=== PATIENT | female | born 1930 | race Caucasian/White ===

== ENCOUNTER 2018-07-15 15:51 | Inpatient (IN) ==
[2018-07-15 18:28] LABS: Basophils % 0.3 % (0.0-0.8); Hematocrit 44.6 VOL% (35.7-47.0); Hemoglobin 14.9 GM/DL (12.0-16.0); Immature Granulocytes % 0.2 %; Immature Granulocytes Absolute 0.03 #; Lymphocytes # 1.5 10*3/uL (1.4-4.0); Lymphocytes % 11.8 % (21.3-54.2); Mean Corpuscular HGB Conc 33.4 GM/DL (32-36); Mean Corpuscular Hemoglobin 30 PG (27-34); Mean Corpuscular Volume 88.5 FL (87-102); Mean Platelet Volume 9.9 FL (9.6-12.0); Monocytes # 0.4 10*3/uL (0.11-0.8); Neutrophils # 10.9 10*3/uL (1.4-7.4); Neutrophils % 84.7 % (38.7-73.9); Platelet Count 309 T/CUMM (130-400); Red Blood Count 5.04 MC/CUMM (3.8-5.5); Red Cell Distribution Width 14.5 % (9.3-17.3); White Blood Count 12.9 T/CUMM (4-12)
[2018-07-15 18:50] LABS: Calcium 9.4 MG/DL (8.5-10.1); Osmolality,Calculated 279.7 MOS/KG (273-304); Potassium 3.4 MMOL/L (3.5-5.1)
[2018-07-15 19:02] LABS: Troponin I 1.92 NG/ML (0.00-0.045)
[2018-07-15] MEDS ORDERED: DOCUSATE SODIUM 100 MG CAPSULE PO PRN (19:24)
[2018-07-15] MEDS ORDERED: ACETAMINOPHEN 325 MG TABLET PO PRN (19:24)
[2018-07-15] MEDS ORDERED: NITROGLYCERIN SL 0.4 MG TABLET SL PRN (19:34)
[2018-07-15] MEDS ORDERED: ASPIRIN EC 325 MG TABLET PO ONE (19:36)
[2018-07-15] MEDS ORDERED: POTASSIUM CHLORIDE 20 MEQ TABLET PO ONE (19:37)
[2018-07-15] MEDS: ALPRAZolam 0.5 MG TABLET PO SCH (20:20)
[2018-07-15] MEDS: ONDANSETRON 4 MG/2 ML VIAL IV PRN (20:21)
[2018-07-15] MEDS: traZODone 50 MG TABLET PO PRN (20:23)
[2018-07-15] MEDS ORDERED: LEVOFLOXACIN INJ 500 MG in PREMIX 1 EACH IV SCH (21:00)
[2018-07-15 21:16] LABS: CKMB % 8.4 %
[2018-07-15 21:23] LABS: Troponin I 2.77 NG/ML (0.00-0.045)
[2018-07-15] MEDS: BIMATOPROST 0.01% OPH SOLN 2.5 ML BOTTLE BOTH EYES SCH (22:47)
[2018-07-15] MEDS: ENOXAPARIN 80 MG/0.8 ML SYRINGE SUBCUT SCH (22:49)
[2018-07-15] MEDS: FUROSEMIDE 40 MG/4 ML VIAL IV SCH (22:50)
[2018-07-15] MEDS: rOPINIRole 1 MG TABLET PO SCH (22:52)
[2018-07-15] MEDS: PANTOPRAZOLE 40 MG TABLET PO SCH (22:52)
[2018-07-15] MEDS: CARVEDILOL 25 MG TABLET PO SCH (22:53)
[2018-07-16 01:54] LABS: Basophils % 0.2 % (0.0-0.8); Hematocrit 43.5 VOL% (35.7-47.0); Hemoglobin 14.7 GM/DL (12.0-16.0); Immature Granulocytes % 0.2 %; Immature Granulocytes Absolute 0.02 #; Lymphocytes # 1.6 10*3/uL (1.4-4.0); Lymphocytes % 15.9 % (21.3-54.2); Mean Corpuscular HGB Conc 33.8 GM/DL (32-36); Mean Corpuscular Hemoglobin 29 PG (27-34); Mean Platelet Volume 9.9 FL (9.6-12.0); Monocytes # 0.6 10*3/uL (0.11-0.8); Monocytes % 5.8 % (1.7-12.7); Neutrophils # 7.6 10*3/uL (1.4-7.4); Neutrophils % 77.9 % (38.7-73.9); Platelet Count 306 T/CUMM (130-400); Red Cell Distribution Width 14.3 % (9.3-17.3); White Blood Count 9.7 T/CUMM (4-12)
[2018-07-16 02:23] LABS: Calcium 9.4 MG/DL (8.5-10.1); Osmolality,Calculated 279.7 MOS/KG (273-304); Risk Ratio 3.17; VLDL CHOLESTEROL 15.6 MG/DL
[2018-07-16 02:25] LABS: CKMB % 6.5 %
[2018-07-16 02:27] LABS: Troponin I 4.45 NG/ML (0.00-0.045)
[2018-07-16] MEDS ORDERED: CLOPIDOGREL 300 MG TABLET PO ONE (02:30)
[2018-07-16] MEDS ORDERED: diphenhydrAMINE CAP 50 MG CAPSULE PO ONE (02:48)
[2018-07-16] MEDS: ONDANSETRON 4 MG/2 ML VIAL IV PRN ×5 (03:45→16:08)
[2018-07-16 05:04] LABS: Apearance,Urine CLEAR (Clear); Bilirubin,Urine Negative (Negative); Blood, Urine Negative (Negative); Glucose,Urine (UA) 50 mg/dL (Negative); Hyaline Casts,Urine 3 /LPF (0-3); Ketones,Urine 20 mg/dL (Negative); Mucus,Urine Occasional /LPF (Occasional); Nitrite,Urine Negative (Negative); Protein,Urine 30 MG/DL; RBC,Urine 1 /HPF (0-4); Squamous Epithelial Cell,Urine Occasional /HPF (0-10); Urine Color Straw (Yellow); Urine Specific Gravity 1.009 (1.001-1.035); Urine Urobilinogen < 2.0 EU/DL (0.2-1.0); WBC,Urine <1 /HPF (0-6)
[2018-07-16] MEDS ORDERED: MAGNESIUM SULF RIDER 2 GM in PREMIX 1 EACH IV PRN (07:12)
[2018-07-16] MEDS ORDERED: DIAZEPAM 5 MG TABLET PO ONE (07:12)
[2018-07-16] MEDS ORDERED: diphenhydrAMINE CAP 25 MG CAPSULE PO ONE (07:12)
[2018-07-16] MEDS ORDERED: SODIUM CHLORIDE 0.9% 1,000 ML IV SCH (07:30)
[2018-07-16] MEDS: ALPRAZolam 0.5 MG TABLET PO SCH ×2 (08:14→22:23)
[2018-07-16] MEDS: ESCITALOPRAM 10 MG TABLET PO SCH (08:14)
[2018-07-16] MEDS: ENOXAPARIN 80 MG/0.8 ML SYRINGE SUBCUT SCH (08:14)
[2018-07-16] MEDS ORDERED: POTASSIUM CHLORIDE 20 MEQ TABLET PO PRN (08:20)
[2018-07-16] MEDS: FUROSEMIDE 40 MG/4 ML VIAL IV SCH ×2 (08:23→16:45)
[2018-07-16] MEDS ORDERED: LOSARTAN 50 MG TABLET PO SCH (09:00)
[2018-07-16] MEDS ORDERED: NITROGLYCERIN 0.2 MG/HR PATCH TRANSDERM SCH (09:00)
[2018-07-16] MEDS ORDERED: ASPIRIN EC 325 MG TABLET PO SCH (09:00)
[2018-07-16] MEDS: POTASSIUM CHLORIDE 20 MEQ TABLET PO SCH (09:09)
[2018-07-16] MEDS: POTASSIUM CHLORIDE RIDER 10 MEQ in PREMIX 1 EACH IV PRN ×2 (09:10→11:42)
[2018-07-16] MEDS ORDERED: HEPARIN/NACL 0.9% 2 UNITS/ML 0 ML IV ONE (11:49)
[2018-07-16] MEDS ORDERED: LIDOCAINE 1% 20 ML VIAL ONE (11:49)
[2018-07-16] MEDS: CLOPIDOGREL 75 MG TABLET PO SCH (12:33)
[2018-07-16] MEDS: AMIODARONE 200 MG TABLET PO SCH (12:33)
[2018-07-16] MEDS: CARVEDILOL 25 MG TABLET PO SCH ×2 (12:33→22:22)
[2018-07-16] MEDS: PANTOPRAZOLE 40 MG TABLET PO SCH ×2 (12:33→22:22)
[2018-07-16] MEDS: ASPIRIN EC 81 MG TABLET PO SCH (12:33)
[2018-07-16] MEDS ORDERED: HEPARIN/NACL 0.9% 2 UNITS/ML 1,000 ML IV ONE (13:14)
[2018-07-16] MEDS ORDERED: ALPRAZolam 0.5 MG TABLET PO ONE (15:57)
[2018-07-16] MEDS: traZODone 50 MG TABLET PO PRN (21:00)
[2018-07-16] MEDS: rOPINIRole 1 MG TABLET PO SCH (22:22)
[2018-07-16] MEDS: BIMATOPROST 0.01% OPH SOLN 2.5 ML BOTTLE BOTH EYES SCH (22:22)
[2018-07-17] MEDS ORDERED: ALPRAZolam 0.5 MG TABLET PO ONE (00:47)
[2018-07-17 06:09] LABS: Basophils % 0.1 % (0.0-0.8); Hematocrit 41.6 VOL% (35.7-47.0); Hemoglobin 13.9 GM/DL (12.0-16.0); Immature Granulocytes % 0.6 %; Immature Granulocytes Absolute 0.09 #; Lymphocytes # 1.8 10*3/uL (1.4-4.0); Lymphocytes % 11.2 % (21.3-54.2); Mean Corpuscular HGB Conc 33.4 GM/DL (32-36); Mean Corpuscular Hemoglobin 30 PG (27-34); Mean Corpuscular Volume 89.1 FL (87-102); Mean Platelet Volume 10.7 FL (9.6-12.0); Monocytes # 1.6 10*3/uL (0.11-0.8); Monocytes % 9.9 % (1.7-12.7); Neutrophils # 12.5 10*3/uL (1.4-7.4); Neutrophils % 78.2 % (38.7-73.9); Platelet Count 281 T/CUMM (130-400); Red Blood Count 4.67 MC/CUMM (3.8-5.5); Red Cell Distribution Width 14.6 % (9.3-17.3)
[2018-07-17 06:18] LABS: Calcium 9.8 MG/DL (8.5-10.1); Osmolality,Calculated 289.4 MOS/KG (273-304); Potassium 3.4 MMOL/L (3.5-5.1)
[2018-07-17] MEDS: FUROSEMIDE 40 MG/4 ML VIAL IV SCH ×2 (10:06→16:25)
[2018-07-17] MEDS: POTASSIUM CHLORIDE 20 MEQ TABLET PO SCH (10:07)
[2018-07-17] MEDS: ENOXAPARIN 40 MG/0.4 ML SYRINGE SUBCUT SCH (10:07)
[2018-07-17] MEDS: AMIODARONE 200 MG TABLET PO SCH (10:07)
[2018-07-17] MEDS: ASPIRIN EC 81 MG TABLET PO SCH (10:07)
[2018-07-17] MEDS: SPIRONOLACTONE 25 MG TABLET PO SCH (10:07)
[2018-07-17] MEDS: CARVEDILOL 25 MG TABLET PO SCH ×2 (10:07→21:34)
[2018-07-17] MEDS: ESCITALOPRAM 10 MG TABLET PO SCH (10:07)
[2018-07-17] MEDS: ALPRAZolam 0.5 MG TABLET PO SCH ×2 (10:08→21:34)
[2018-07-17] MEDS: CLOPIDOGREL 75 MG TABLET PO SCH (10:08)
[2018-07-17] MEDS: PANTOPRAZOLE 40 MG TABLET PO SCH ×2 (10:08→21:34)
[2018-07-17] MEDS: ONDANSETRON 4 MG/2 ML VIAL IV PRN ×2 (10:24→19:29)
[2018-07-17] MEDS: SUCRALFATE 1 GM/10 ML UDCUP PO SCH ×3 (16:00→21:37)
[2018-07-17] MEDS: BIMATOPROST 0.01% OPH SOLN 2.5 ML BOTTLE BOTH EYES SCH (21:34)
[2018-07-17] MEDS: SACUBITRIL/VALSARTAN 49-51 MG TABLET PO SCH (21:34)
[2018-07-17] MEDS: rOPINIRole 1 MG TABLET PO SCH (21:34)
[2018-07-18 08:03] LABS: Basophils % 0.1 % (0.0-0.8); Hematocrit 38.7 VOL% (35.7-47.0); Hemoglobin 13.2 GM/DL (12.0-16.0); Immature Granulocytes % 0.5 %; Immature Granulocytes Absolute 0.07 #; Lymphocytes # 1.9 10*3/uL (1.4-4.0); Mean Corpuscular HGB Conc 34.1 GM/DL (32-36); Mean Corpuscular Hemoglobin 30 PG (27-34); Mean Corpuscular Volume 88.4 FL (87-102); Mean Platelet Volume 10.5 FL (9.6-12.0); Monocytes # 1.4 10*3/uL (0.11-0.8); Monocytes % 10.3 % (1.7-12.7); Neutrophils # 10.1 10*3/uL (1.4-7.4); Neutrophils % 75.1 % (38.7-73.9); Platelet Count 260 T/CUMM (130-400); Red Blood Count 4.38 MC/CUMM (3.8-5.5); Red Cell Distribution Width 14.5 % (9.3-17.3); White Blood Count 13.5 T/CUMM (4-12)
[2018-07-18 08:30] LABS: Albumin 3.2 G/DL (3.4-5.0); Bilirubin,Direct 0.32 MG/DL (0.0-0.20); Bilirubin,Indirect 0.6 MG/DL (0.0-1.0); Bilirubin,Total 0.9 MG/DL (0.2-1.0); Total Protein 6.4 G/DL (6.4-8.3)
[2018-07-18 08:32] LABS: Calcium 8.7 MG/DL (8.5-10.1); Osmolality,Calculated 289.4 MOS/KG (273-304); Potassium 3.1 MMOL/L (3.5-5.1)
[2018-07-18] MEDS: FUROSEMIDE 40 MG/4 ML VIAL IV SCH (08:52)
[2018-07-18] MEDS: SUCRALFATE 1 GM/10 ML UDCUP PO SCH ×4 (09:30→21:13)
[2018-07-18] MEDS: POTASSIUM CHLORIDE RIDER 10 MEQ in PREMIX 1 EACH IV PRN ×4 (10:44→17:10)
[2018-07-18] MEDS ORDERED: KETOROLAC 15 MG/1 ML VIAL IV ONE (11:04)
[2018-07-18] MEDS: ESCITALOPRAM 10 MG TABLET PO SCH (14:22)
[2018-07-18] MEDS: CLOPIDOGREL 75 MG TABLET PO SCH (14:22)
[2018-07-18] MEDS: CARVEDILOL 25 MG TABLET PO SCH ×2 (14:23→22:16)
[2018-07-18] MEDS: ASPIRIN EC 81 MG TABLET PO SCH (14:23)
[2018-07-18] MEDS: ALPRAZolam 0.5 MG TABLET PO SCH ×2 (14:23→22:16)
[2018-07-18] MEDS: SPIRONOLACTONE 25 MG TABLET PO SCH (14:23)
[2018-07-18] MEDS: PANTOPRAZOLE 40 MG TABLET PO SCH ×2 (14:23→21:13)
[2018-07-18] MEDS: AMIODARONE 200 MG TABLET PO SCH (14:23)
[2018-07-18] MEDS: POTASSIUM CHLORIDE 20 MEQ TABLET PO SCH (14:24)
[2018-07-18] MEDS: ENOXAPARIN 40 MG/0.4 ML SYRINGE SUBCUT SCH (14:24)
[2018-07-18] MEDS: SACUBITRIL/VALSARTAN 49-51 MG TABLET PO SCH ×2 (14:24→21:12)
[2018-07-18] MEDS: ONDANSETRON 4 MG/2 ML VIAL IV PRN (14:39)
[2018-07-18] MEDS: PIPERACILLIN/TAZOBACTAM 3,375 MG in SODIUM CHLORIDE 0.9% 100 ML IV SCH ×2 (15:02→22:15)
[2018-07-18] MEDS: rOPINIRole 1 MG TABLET PO SCH (21:12)
[2018-07-18] MEDS: BIMATOPROST 0.01% OPH SOLN 2.5 ML BOTTLE BOTH EYES SCH (21:13)
[2018-07-19 04:07] LABS: Hematocrit 38.2 VOL% (35.7-47.0); Hemoglobin 12.6 GM/DL (12.0-16.0); Immature Granulocytes % 0.4 %; Immature Granulocytes Absolute 0.05 #; Lymphocytes # 2.2 10*3/uL (1.4-4.0); Lymphocytes % 17.6 % (21.3-54.2); Mean Corpuscular Hemoglobin 30 PG (27-34); Mean Platelet Volume 11.1 FL (9.6-12.0); Monocytes # 1.3 10*3/uL (0.11-0.8); Monocytes % 10.1 % (1.7-12.7); Neutrophils % 71.9 % (38.7-73.9); Platelet Count 236 T/CUMM (130-400); Red Cell Distribution Width 14.5 % (9.3-17.3); White Blood Count 12.5 T/CUMM (4-12)
[2018-07-19 04:30] LABS: Calcium 8.7 MG/DL (8.5-10.1); Osmolality,Calculated 287.4 MOS/KG (273-304); Potassium 3.9 MMOL/L (3.5-5.1)
[2018-07-19] MEDS: PIPERACILLIN/TAZOBACTAM 3,375 MG in SODIUM CHLORIDE 0.9% 100 ML IV SCH ×2 (05:45→13:55)
[2018-07-19] MEDS: ENOXAPARIN 40 MG/0.4 ML SYRINGE SUBCUT SCH (08:38)
[2018-07-19] MEDS: ALPRAZolam 0.5 MG TABLET PO SCH (08:38)
[2018-07-19] MEDS: SUCRALFATE 1 GM/10 ML UDCUP PO SCH ×2 (08:38→12:26)
[2018-07-19] MEDS: ASPIRIN EC 81 MG TABLET PO SCH (08:38)
[2018-07-19] MEDS: POTASSIUM CHLORIDE 20 MEQ TABLET PO SCH (08:38)
[2018-07-19] MEDS: CLOPIDOGREL 75 MG TABLET PO SCH (08:39)
[2018-07-19] MEDS: CARVEDILOL 25 MG TABLET PO SCH (08:39)
[2018-07-19] MEDS: PANTOPRAZOLE 40 MG TABLET PO SCH (08:39)
[2018-07-19] MEDS: AMIODARONE 200 MG TABLET PO SCH (08:39)
[2018-07-19] MEDS: ESCITALOPRAM 10 MG TABLET PO SCH (08:39)
[2018-07-19] MEDS: SPIRONOLACTONE 25 MG TABLET PO SCH (08:39)
[2018-07-19] MEDS: SACUBITRIL/VALSARTAN 49-51 MG TABLET PO SCH (08:39)
[2018-07-19] MEDS ORDERED: FUROSEMIDE 40 MG TABLET PO SCH (09:00)
[2018-07-19] MEDS ORDERED: SODIUM CHLORIDE 0.9% 250 ML IV ONE (11:20)
[2018-07-19 12:25] VITALS: BP 96/44
== END 2018-07-19 16:37 | DRG 280 ==
LOC: N.TELES 17:20 → SUATTDRO 17:20
PROVIDERS: ADMIT Internal Medicine; ATTEND Internal Medicine
PROC: CLCCHCL (ICD-10-PCS; 2018-07-16 13:45)

== ENCOUNTER 2018-10-26 21:52 | Inpatient (IN) ==
[2018-10-27] MEDS: ACETAMINOPHEN 500 MG TABLET PO PRN ×2 (00:50→07:01)
[2018-10-27] MEDS: ONDANSETRON 4 MG/2 ML VIAL IV PRN ×5 (00:50→19:48)
[2018-10-27 01:37] LABS: Basophils # 0.1 10*3/uL (0.0-0.2); Basophils % 0.3 % (0.0-0.8); Eosinophils % 0.2 % (0.00-10.9); Hematocrit 38.3 VOL% (35.7-47.0); Hemoglobin 12.6 GM/DL (12.0-16.0); Immature Granulocytes % 0.6 %; Immature Granulocytes Absolute 0.11 #; Lymphocytes # 1.6 10*3/uL (1.4-4.0); Lymphocytes % 8.9 % (21.3-54.2); Mean Corpuscular HGB Conc 32.9 GM/DL (32-36); Mean Corpuscular Volume 93.2 FL (87-102); Mean Platelet Volume 9.4 FL (9.6-12.0); Monocytes % 7.9 % (1.7-12.7); Neutrophils % 82.1 % (38.7-73.9); Platelet Count 266 T/CUMM (130-400); Red Blood Count 4.11 MC/CUMM (3.8-5.5); Red Cell Distribution Width 13.4 % (9.3-17.3)
[2018-10-27 01:59] LABS: Albumin 3.4 G/DL (3.4-5.0); Bilirubin,Total 0.5 MG/DL (0.2-1.0); Calcium 9.1 MG/DL (8.5-10.1); Osmolality,Calculated 275.5 MOS/KG (273-304); Total Protein 7.3 G/DL (6.4-8.3)
[2018-10-27] MEDS: MORPHINE 4 MG/1 ML VIAL IV PRN ×2 (02:13→07:38)
[2018-10-27] MEDS ORDERED: ACETAMINOPHEN 325 MG TABLET PO PRN (11:36)
[2018-10-27] MEDS ORDERED: ONDANSETRON ODT 4 MG TABLET PO PRN (11:36)
[2018-10-27] MEDS: PROMETHAZINE 25 MG/1 ML VIAL IM PRN ×2 (13:49→18:16)
[2018-10-27] MEDS: VANCOMYCIN 50 MG/ML 60 ML/BOTTLE PO SCH ×2 (13:49→18:16)
[2018-10-27] MEDS: ENOXAPARIN 40 MG/0.4 ML SYRINGE SUBCUT SCH (13:49)
[2018-10-27] MEDS: oxyCODONE/ACETAMINOPHEN 5-325 MG TABLET PO SCH ×2 (15:50→21:59)
[2018-10-27] MEDS ORDERED: CARVEDILOL 6.25 MG TABLET PO SCH (21:00)
[2018-10-27] MEDS: BIMATOPROST 0.01% OPH SOLN 2.5 ML BOTTLE BOTH EYES SCH (21:59)
[2018-10-27] MEDS: CARVEDILOL 12.5 MG TABLET PO SCH (21:59)
[2018-10-27] MEDS: rOPINIRole 0.25 MG TABLET PO SCH (22:00)
[2018-10-27] MEDS: DIVALPROEX ER 250 MG TABLET PO SCH (22:13)
[2018-10-27] MEDS: PHENOL 1.4% THROAT SPRAY 177 ML BOTTLE PO PRN (22:14)
[2018-10-28] MEDS: VANCOMYCIN 50 MG/ML 60 ML/BOTTLE PO SCH ×5 (00:43→23:47)
[2018-10-28] MEDS: MORPHINE 4 MG/1 ML VIAL IV PRN ×2 (01:10→06:26)
[2018-10-28] MEDS: PROMETHAZINE 25 MG/1 ML VIAL IM PRN ×2 (01:13→06:25)
[2018-10-28 05:12] LABS: Basophils # 0.1 10*3/uL (0.0-0.2); Basophils % 0.4 % (0.0-0.8); Eosinophils % 0.1 % (0.00-10.9); Hematocrit 35.8 VOL% (35.7-47.0); Hemoglobin 11.8 GM/DL (12.0-16.0); Immature Granulocytes % 1.1 %; Immature Granulocytes Absolute 0.25 #; Lymphocytes # 2.7 10*3/uL (1.4-4.0); Lymphocytes % 11.7 % (21.3-54.2); Mean Corpuscular Volume 93.2 FL (87-102); Mean Platelet Volume 10.2 FL (9.6-12.0); Neutrophils % 75.7 % (38.7-73.9); Platelet Count 259 T/CUMM (130-400); Red Blood Count 3.84 MC/CUMM (3.8-5.5); Red Cell Distribution Width 13.5 % (9.3-17.3); White Blood Count 23.4 T/CUMM (4-12)
[2018-10-28 05:22] LABS: Osmolality,Calculated 270.8 MOS/KG (273-304)
[2018-10-28 05:40] LABS: Band Neutrophils 4 % (0-10); Lymphocytes 8 % (20-55); Platelet Estimate Normal; Segmented Neutrophils 78 % (50-85); Total Cells Counted 100
[2018-10-28 08:51] LABS: Apearance,Urine CLEAR (Clear); Bilirubin,Urine Negative (Negative); Blood, Urine Negative (Negative); Glucose,Urine (UA) Negative (Negative); Hyaline Casts,Urine 1 /LPF (0-3); Ketones,Urine 20 mg/dL (Negative); Mucus,Urine Occasional /LPF (Occasional); Nitrite,Urine Negative (Negative); Protein,Urine Negative; RBC,Urine 1 /HPF (0-4); Urine Color Yellow (Yellow); Urine Specific Gravity 1.011 (1.001-1.035); Urine Urobilinogen < 2.0 EU/DL (0.2-1.0); WBC,Urine 8 /HPF (0-6)
[2018-10-28] MEDS: ESCITALOPRAM 10 MG TABLET PO SCH (09:41)
[2018-10-28] MEDS: oxyCODONE/ACETAMINOPHEN 5-325 MG TABLET PO SCH ×3 (09:41→21:30)
[2018-10-28] MEDS: CARVEDILOL 12.5 MG TABLET PO SCH ×2 (09:42→21:32)
[2018-10-28] MEDS: QUEtiapine 25 MG TABLET PO SCH (09:42)
[2018-10-28] MEDS: SPIRONOLACTONE 25 MG TABLET PO SCH (09:42)
[2018-10-28] MEDS: PANTOPRAZOLE 40 MG TABLET PO SCH (09:42)
[2018-10-28] MEDS: AMIODARONE 200 MG TABLET PO SCH (09:42)
[2018-10-28] MEDS: ONDANSETRON 4 MG/2 ML VIAL IV PRN ×2 (09:43→22:16)
[2018-10-28] MEDS: ENOXAPARIN 40 MG/0.4 ML SYRINGE SUBCUT SCH (13:30)
[2018-10-28] MEDS: rOPINIRole 0.25 MG TABLET PO SCH (21:30)
[2018-10-28] MEDS: BIMATOPROST 0.01% OPH SOLN 2.5 ML BOTTLE BOTH EYES SCH (21:31)
[2018-10-28] MEDS: DIVALPROEX ER 250 MG TABLET PO SCH (21:31)
[2018-10-29] MEDS: ALPRAZolam 0.5 MG TABLET PO PRN (01:35)
[2018-10-29] MEDS: PHENOL 1.4% THROAT SPRAY 177 ML BOTTLE PO PRN (01:35)
[2018-10-29] MEDS: VANCOMYCIN 50 MG/ML 60 ML/BOTTLE PO SCH ×4 (06:24→23:26)
[2018-10-29 07:22] LABS: Basophils # 0.1 10*3/uL (0.0-0.2); Basophils % 0.4 % (0.0-0.8); Eosinophils # 0.4 10*3/uL (0.0-0.87); Eosinophils % 2.1 % (0.00-10.9); Hemoglobin 11.4 GM/DL (12.0-16.0); Immature Granulocytes % 0.7 %; Immature Granulocytes Absolute 0.13 #; Lymphocytes # 1.9 10*3/uL (1.4-4.0); Lymphocytes % 10.5 % (21.3-54.2); Mean Corpuscular HGB Conc 33.5 GM/DL (32-36); Mean Corpuscular Volume 91.6 FL (87-102); Mean Platelet Volume 9.6 FL (9.6-12.0); Monocytes % 8.7 % (1.7-12.7); Neutrophils % 77.6 % (38.7-73.9); Platelet Count 257 T/CUMM (130-400); Red Blood Count 3.71 MC/CUMM (3.8-5.5); Red Cell Distribution Width 13.4 % (9.3-17.3); White Blood Count 18.2 T/CUMM (4-12)
[2018-10-29] MEDS: PROMETHAZINE 25 MG/1 ML VIAL IM PRN ×2 (07:22→22:07)
[2018-10-29] MEDS: PANTOPRAZOLE 40 MG TABLET PO SCH (09:18)
[2018-10-29] MEDS: SPIRONOLACTONE 25 MG TABLET PO SCH (09:18)
[2018-10-29] MEDS: CARVEDILOL 12.5 MG TABLET PO SCH ×2 (09:19→21:48)
[2018-10-29] MEDS: ESCITALOPRAM 10 MG TABLET PO SCH (09:19)
[2018-10-29] MEDS: AMIODARONE 200 MG TABLET PO SCH (09:19)
[2018-10-29] MEDS: QUEtiapine 25 MG TABLET PO SCH (09:20)
[2018-10-29] MEDS: oxyCODONE/ACETAMINOPHEN 5-325 MG TABLET PO SCH ×3 (09:49→21:47)
[2018-10-29 10:36] LABS: Calcium 8.7 MG/DL (8.5-10.1); Osmolality,Calculated 269.2 MOS/KG (273-304)
[2018-10-29] MEDS: ENOXAPARIN 40 MG/0.4 ML SYRINGE SUBCUT SCH (13:04)
[2018-10-29] MEDS: rOPINIRole 0.25 MG TABLET PO SCH (21:48)
[2018-10-29] MEDS: DIVALPROEX ER 250 MG TABLET PO SCH (21:49)
[2018-10-29] MEDS: BIMATOPROST 0.01% OPH SOLN 2.5 ML BOTTLE BOTH EYES SCH (22:06)
[2018-10-30 04:42] LABS: Basophils % 0.2 % (0.0-0.8); Eosinophils # 0.4 10*3/uL (0.0-0.87); Eosinophils % 3.2 % (0.00-10.9); Hematocrit 32.2 VOL% (35.7-47.0); Hemoglobin 10.8 GM/DL (12.0-16.0); Immature Granulocytes % 0.4 %; Immature Granulocytes Absolute 0.05 #; Lymphocytes # 2.2 10*3/uL (1.4-4.0); Lymphocytes % 18.3 % (21.3-54.2); Mean Corpuscular HGB Conc 33.5 GM/DL (32-36); Mean Corpuscular Volume 91.5 FL (87-102); Mean Platelet Volume 10.4 FL (9.6-12.0); Monocytes % 10.2 % (1.7-12.7); Neutrophils % 67.7 % (38.7-73.9); Platelet Count 258 T/CUMM (130-400); Red Blood Count 3.52 MC/CUMM (3.8-5.5); Red Cell Distribution Width 13.3 % (9.3-17.3); White Blood Count 12.2 T/CUMM (4-12)
[2018-10-30 04:59] LABS: Calcium 8.5 MG/DL (8.5-10.1); Osmolality,Calculated 278.7 MOS/KG (273-304)
[2018-10-30] MEDS: VANCOMYCIN 50 MG/ML 60 ML/BOTTLE PO SCH ×3 (06:10→17:18)
[2018-10-30] MEDS: oxyCODONE/ACETAMINOPHEN 5-325 MG TABLET PO SCH ×3 (08:54→21:41)
[2018-10-30] MEDS: ESCITALOPRAM 10 MG TABLET PO SCH (08:55)
[2018-10-30] MEDS: SPIRONOLACTONE 25 MG TABLET PO SCH (08:55)
[2018-10-30] MEDS: QUEtiapine 25 MG TABLET PO SCH (08:55)
[2018-10-30] MEDS: CARVEDILOL 12.5 MG TABLET PO SCH ×2 (08:55→21:40)
[2018-10-30] MEDS: AMIODARONE 200 MG TABLET PO SCH (08:55)
[2018-10-30] MEDS: PANTOPRAZOLE 40 MG TABLET PO SCH (08:56)
[2018-10-30] MEDS: PROMETHAZINE 25 MG/1 ML VIAL IM PRN (10:20)
[2018-10-30] MEDS: ENOXAPARIN 40 MG/0.4 ML SYRINGE SUBCUT SCH (12:41)
[2018-10-30] MEDS: ONDANSETRON 4 MG/2 ML VIAL IV PRN (12:50)
[2018-10-30] MEDS: DIVALPROEX ER 250 MG TABLET PO SCH (21:41)
[2018-10-30] MEDS: BIMATOPROST 0.01% OPH SOLN 2.5 ML BOTTLE BOTH EYES SCH (21:41)
[2018-10-30] MEDS: LACTOBACILLUS RHAMNOSUS GG CAPSULE PO SCH (21:50)
[2018-10-30] MEDS: rOPINIRole 0.25 MG TABLET PO SCH (21:51)
[2018-10-31] MEDS: VANCOMYCIN 50 MG/ML 60 ML/BOTTLE PO SCH ×3 (00:12→13:15)
[2018-10-31] MEDS: CARVEDILOL 12.5 MG TABLET PO SCH ×2 (01:10→08:43)
[2018-10-31 04:30] LABS: Basophils % 0.5 % (0.0-0.8); Eosinophils # 0.5 10*3/uL (0.0-0.87); Eosinophils % 5.9 % (0.00-10.9); Hematocrit 32.3 VOL% (35.7-47.0); Hemoglobin 10.4 GM/DL (12.0-16.0); Immature Granulocytes % 0.5 %; Immature Granulocytes Absolute 0.04 #; Lymphocytes # 2.1 10*3/uL (1.4-4.0); Lymphocytes % 26.9 % (21.3-54.2); Mean Corpuscular HGB Conc 32.2 GM/DL (32-36); Mean Corpuscular Volume 93.9 FL (87-102); Mean Platelet Volume 9.6 FL (9.6-12.0); Monocytes % 15.4 % (1.7-12.7); Neutrophils % 50.8 % (38.7-73.9); Platelet Count 246 T/CUMM (130-400); Red Blood Count 3.44 MC/CUMM (3.8-5.5); Red Cell Distribution Width 13.4 % (9.3-17.3); White Blood Count 7.6 T/CUMM (4-12)
[2018-10-31 04:46] LABS: Calcium 8.9 MG/DL (8.5-10.1); Osmolality,Calculated 283.3 MOS/KG (273-304)
[2018-10-31] MEDS: ACETAMINOPHEN 500 MG TABLET PO PRN (05:42)
[2018-10-31] MEDS: ALPRAZolam 0.5 MG TABLET PO PRN (05:42)
[2018-10-31] MEDS: ESCITALOPRAM 10 MG TABLET PO SCH (08:42)
[2018-10-31] MEDS: PROMETHAZINE 25 MG/1 ML VIAL IM PRN (08:42)
[2018-10-31] MEDS: SPIRONOLACTONE 25 MG TABLET PO SCH (08:43)
[2018-10-31] MEDS: oxyCODONE/ACETAMINOPHEN 5-325 MG TABLET PO SCH ×2 (08:43→14:14)
[2018-10-31] MEDS: PANTOPRAZOLE 40 MG TABLET PO SCH (08:43)
[2018-10-31] MEDS: QUEtiapine 25 MG TABLET PO SCH (08:43)
[2018-10-31] MEDS: LACTOBACILLUS RHAMNOSUS GG CAPSULE PO SCH (08:43)
[2018-10-31] MEDS: AMIODARONE 200 MG TABLET PO SCH (08:44)
[2018-10-31 12:33] VITALS: BP 126/81
[2018-10-31] MEDS: ENOXAPARIN 40 MG/0.4 ML SYRINGE SUBCUT SCH (13:15)
[2018-11-01] MEDS ORDERED: FUROSEMIDE 40 MG TABLET PO SCH (09:00)
[2018-11-01] MEDS ORDERED: ASPIRIN EC 81 MG TABLET PO SCH (09:00)
== END 2018-10-31 14:21 | disposition home health service (06) | DRG 372 ==
LOC: N.TELES → N.TELEN 10-27 08:56
PROVIDERS: ADMIT Internal Medicine Cardiovascular Disease; ATTEND Internal Medicine Cardiovascular Disease

== ENCOUNTER 2019-02-16 23:35 | Inpatient (IN) ==
[2019-02-17] MEDS ORDERED: ACETAMINOPHEN 325 MG TABLET PO PRN (02:30)
[2019-02-17] MEDS ORDERED: ONDANSETRON 4 MG/2 ML VIAL IV PRN (02:30)
[2019-02-17] MEDS ORDERED: SODIUM CHLORIDE 0.9% 1,000 ML IV SCH (02:30)
[2019-02-17] MEDS ORDERED: LACTULOSE 20 GM/30 ML UDCUP PO PRN (02:30)
[2019-02-17] MEDS ORDERED: DOCUSATE SODIUM 100 MG CAPSULE PO PRN (02:37)
[2019-02-17] MEDS: CLORAZEPATE 3.75 MG TABLET PO PRN ×2 (04:54→17:38)
[2019-02-17] MEDS: oxyCODONE/ACETAMINOPHEN 5-325 MG TABLET PO PRN (06:57)
[2019-02-17 07:04] LABS: Basophils # 0.1 10*3/uL (0.0-0.2); Basophils % 0.4 % (0.0-0.8); Eosinophils % 0.2 % (0.00-10.9); Hematocrit 36.1 VOL% (35.7-47.0); Hemoglobin 12.3 GM/DL (12.0-16.0); Immature Granulocytes % 0.5 %; Immature Granulocytes Absolute 0.08 #; Lymphocytes # 1.1 10*3/uL (1.4-4.0); Mean Corpuscular HGB Conc 34.1 GM/DL (32-36); Mean Corpuscular Volume 88.7 FL (87-102); Mean Platelet Volume 10.3 FL (9.6-12.0); Monocytes % 8.1 % (1.7-12.7); Neutrophils % 83.8 % (38.7-73.9); Platelet Count 254 T/CUMM (130-400); Red Blood Count 4.07 MC/CUMM (3.8-5.5); Red Cell Distribution Width 14.4 % (9.3-17.3); White Blood Count 15.6 T/CUMM (4-12)
[2019-02-17 07:30] LABS: Calcium 9.4 MG/DL (8.5-10.1); Osmolality,Calculated 278.4 MOS/KG (273-304)
[2019-02-17] MEDS: QUEtiapine 25 MG TABLET PO SCH ×2 (09:12→20:19)
[2019-02-17] MEDS: MULTIVITAMIN (CENTRUM) TABLET PO SCH (09:13)
[2019-02-17] MEDS: AMIODARONE 200 MG TABLET PO SCH (09:13)
[2019-02-17] MEDS: PANTOPRAZOLE 40 MG TABLET PO SCH (09:13)
[2019-02-17] MEDS: FUROSEMIDE 40 MG TABLET PO SCH (09:13)
[2019-02-17] MEDS: ESCITALOPRAM 10 MG TABLET PO SCH (09:13)
[2019-02-17] MEDS: CARVEDILOL 12.5 MG TABLET PO SCH ×2 (09:13→16:40)
[2019-02-17] MEDS: SPIRONOLACTONE 25 MG TABLET PO SCH (09:14)
[2019-02-17] MEDS: ENOXAPARIN 30 MG/0.3 ML SYRINGE SUBCUT SCH (09:14)
[2019-02-17] MEDS: ASPIRIN EC 81 MG TABLET PO SCH (09:14)
[2019-02-17] MEDS: PROMETHAZINE 25 MG/1 ML VIAL IM PRN ×2 (10:25→20:17)
[2019-02-17 16:45] LABS: Apearance,Urine CLEAR (Clear); Bilirubin,Urine Negative (Negative); Blood, Urine Negative (Negative); Glucose,Urine (UA) Negative (Negative); Hyaline Casts,Urine 1 /LPF (0-3); Ketones,Urine Negative (Negative); Nitrite,Urine Negative (Negative); Protein,Urine Negative; Squamous Epithelial Cell,Urine Occasional /HPF (0-10); Urine Color Straw (Yellow); Urine Specific Gravity 1.004 (1.001-1.035); Urine Urobilinogen < 2.0 EU/DL (0.2-1.0)
[2019-02-17] MEDS: ROPINIROLE 0.25 MG PO SCH (20:16)
[2019-02-18] MEDS: PROMETHAZINE 25 MG/1 ML VIAL IM PRN ×2 (01:28→22:29)
[2019-02-18] MEDS: CLORAZEPATE 3.75 MG TABLET PO PRN ×3 (02:18→20:20)
[2019-02-18] MEDS: oxyCODONE/ACETAMINOPHEN 5-325 MG TABLET PO PRN ×3 (05:15→22:29)
[2019-02-18 07:21] LABS: Basophils # 0.1 10*3/uL (0.0-0.2); Basophils % 0.8 % (0.0-0.8); Eosinophils # 0.5 10*3/uL (0.0-0.87); Eosinophils % 4.5 % (0.00-10.9); Hematocrit 33.7 VOL% (35.7-47.0); Hemoglobin 11.4 GM/DL (12.0-16.0); Immature Granulocytes % 0.4 %; Immature Granulocytes Absolute 0.04 #; Lymphocytes # 2.3 10*3/uL (1.4-4.0); Mean Corpuscular HGB Conc 33.8 GM/DL (32-36); Mean Corpuscular Volume 90.6 FL (87-102); Mean Platelet Volume 10.1 FL (9.6-12.0); Monocytes % 12.9 % (1.7-12.7); Neutrophils % 59.4 % (38.7-73.9); Platelet Count 225 T/CUMM (130-400); Red Blood Count 3.72 MC/CUMM (3.8-5.5); Red Cell Distribution Width 14.8 % (9.3-17.3); White Blood Count 10.4 T/CUMM (4-12)
[2019-02-18 07:42] LABS: Albumin 3.2 G/DL (3.4-5.0); Bilirubin,Total 0.5 MG/DL (0.2-1.0); Calcium 8.8 MG/DL (8.5-10.1); Osmolality,Calculated 283.8 MOS/KG (273-304); Total Protein 6.8 G/DL (6.4-8.3)
[2019-02-18] MEDS: CARVEDILOL 12.5 MG TABLET PO SCH ×3 (09:29→18:00)
[2019-02-18] MEDS: PANTOPRAZOLE 40 MG TABLET PO SCH (09:29)
[2019-02-18] MEDS: FUROSEMIDE 40 MG TABLET PO SCH (09:29)
[2019-02-18] MEDS: SPIRONOLACTONE 25 MG TABLET PO SCH (09:29)
[2019-02-18] MEDS: QUEtiapine 25 MG TABLET PO SCH ×2 (09:29→20:20)
[2019-02-18] MEDS: MULTIVITAMIN (CENTRUM) TABLET PO SCH (09:29)
[2019-02-18] MEDS: ASPIRIN EC 81 MG TABLET PO SCH (09:29)
[2019-02-18] MEDS: ESCITALOPRAM 10 MG TABLET PO SCH (09:30)
[2019-02-18] MEDS: AMIODARONE 200 MG TABLET PO SCH (09:30)
[2019-02-18] MEDS: ENOXAPARIN 30 MG/0.3 ML SYRINGE SUBCUT SCH (09:30)
[2019-02-18] MEDS: SODIUM CHLORIDE 0.45% 1,000 ML IV SCH (10:36)
[2019-02-18] MEDS: ROPINIROLE 0.25 MG PO SCH (20:20)
[2019-02-18] MEDS: ZALEPLON 5 MG CAPSULE PO PRN (20:20)
[2019-02-19] MEDS: ZALEPLON 5 MG CAPSULE PO PRN (00:53)
[2019-02-19 04:34] LABS: Basophils # 0.1 10*3/uL (0.0-0.2); Basophils % 0.9 % (0.0-0.8); Eosinophils # 0.4 10*3/uL (0.0-0.87); Eosinophils % 4.6 % (0.00-10.9); Hematocrit 33.9 VOL% (35.7-47.0); Hemoglobin 11.1 GM/DL (12.0-16.0); Immature Granulocytes % 0.4 %; Immature Granulocytes Absolute 0.04 #; Lymphocytes # 2.7 10*3/uL (1.4-4.0); Lymphocytes % 29.9 % (21.3-54.2); Mean Corpuscular HGB Conc 32.7 GM/DL (32-36); Mean Corpuscular Volume 92.4 FL (87-102); Mean Platelet Volume 10.2 FL (9.6-12.0); Neutrophils % 50.2 % (38.7-73.9); Platelet Count 239 T/CUMM (130-400); Red Blood Count 3.67 MC/CUMM (3.8-5.5)
[2019-02-19] MEDS ORDERED: oxyCODONE/ACETAMINOPHEN 5-325 MG TABLET PO ONE (04:39)
[2019-02-19 04:55] LABS: Albumin 2.9 G/DL (3.4-5.0); Bilirubin,Total 0.4 MG/DL (0.2-1.0); Calcium 8.8 MG/DL (8.5-10.1); Osmolality,Calculated 283.7 MOS/KG (273-304); Total Protein 6.4 G/DL (6.4-8.3)
[2019-02-19] MEDS: SODIUM CHLORIDE 0.45% 1,000 ML IV SCH (05:58)
[2019-02-19 07:43] VITALS: BP 128/71
[2019-02-19] MEDS: CARVEDILOL 12.5 MG TABLET PO SCH (08:37)
[2019-02-19] MEDS: PANTOPRAZOLE 40 MG TABLET PO SCH (08:37)
[2019-02-19] MEDS: ASPIRIN EC 81 MG TABLET PO SCH (08:37)
[2019-02-19] MEDS: QUEtiapine 25 MG TABLET PO SCH (08:37)
[2019-02-19] MEDS: AMIODARONE 200 MG TABLET PO SCH (08:37)
[2019-02-19] MEDS: MULTIVITAMIN (CENTRUM) TABLET PO SCH (08:37)
[2019-02-19] MEDS: FUROSEMIDE 40 MG TABLET PO SCH (08:37)
[2019-02-19] MEDS: ESCITALOPRAM 10 MG TABLET PO SCH (08:37)
[2019-02-19] MEDS: SPIRONOLACTONE 25 MG TABLET PO SCH (08:37)
[2019-02-19] MEDS: ENOXAPARIN 30 MG/0.3 ML SYRINGE SUBCUT SCH (08:38)
[2019-02-19] MEDS: oxyCODONE/ACETAMINOPHEN 5-325 MG TABLET PO PRN (08:40)
== END 2019-02-19 12:03 | disposition home health service (06) | DRG 683 ==
LOC: N.5E → SUATTDRO 02-17 00:47 → OBSVTOIN 02-17 00:47
PROVIDERS: ADMIT Internal Medicine; ATTEND Internal Medicine

== ENCOUNTER 2020-04-01 02:59 | Observation (INO) ==
[2020-04-01] MEDS ORDERED: SODIUM CHLORIDE 0.9% 500 ML IV STA (03:48)
[2020-04-01] MEDS ORDERED: ONDANSETRON 4 MG/2 ML VIAL IV STA (03:48)
[2020-04-01] MEDS ORDERED: ASPIRIN 325 MG TABLET PO STA (03:48)
[2020-04-01] MEDS ORDERED: ALUM/MAG/SIMETH/LIDO VISC 1:1 30 ML BOTTLE PO STA (03:48)
[2020-04-01] MEDS ORDERED: MORPHINE 4 MG/1 ML VIAL IV STA (03:48)
[2020-04-01 04:06] LABS: Basophils # 0.1 10*3/uL (0.0-0.2); Basophils % 0.6 % (0.0-0.8); Eosinophils # 0.2 10*3/uL (0.0-0.87); Eosinophils % 1.4 % (0.00-10.9); Hematocrit 37.5 VOL% (35.7-47.0); Hemoglobin 13.3 GM/DL (12.0-16.0); Immature Granulocytes % 0.4 %; Immature Granulocytes Absolute 0.04 #; Lymphocytes # 1.6 10*3/uL (1.4-4.0); Lymphocytes % 14.9 % (21.3-54.2); Mean Corpuscular HGB Conc 35.5 GM/DL (32-36); Mean Corpuscular Volume 91.7 FL (87-102); Mean Platelet Volume 9.7 FL (9.6-12.0); Monocytes % 6.5 % (1.7-12.7); Neutrophils % 76.2 % (38.7-73.9); Platelet Count 235 T/CUMM (130-400); Red Blood Count 4.09 MC/CUMM (3.8-5.5); Red Cell Distribution Width 13.7 % (9.3-17.3); White Blood Count 10.9 T/CUMM (4-12)
[2020-04-01 04:16] LABS: PT Patient Result 11.1 SECS (9.8-11.9)
[2020-04-01 04:37] LABS: Albumin 3.5 G/DL (3.4-5.0); Bilirubin,Total 0.4 MG/DL (0.2-1.0); Calcium 9.6 MG/DL (8.5-10.1); Osmolality,Calculated 277.7 MOS/KG (273-304); Total Protein 7.1 G/DL (6.4-8.3)
[2020-04-01] MEDS ORDERED: POTASSIUM CHLORIDE 20 MEQ TABLET PO STA (04:48)
[2020-04-01] MEDS ORDERED: MAGNESIUM SULF RIDER 4 GM in PREMIX 1 EACH IV PRN (05:55)
[2020-04-01] MEDS ORDERED: DOCUSATE SODIUM 100 MG CAPSULE PO PRN (05:55)
[2020-04-01] MEDS ORDERED: MAGNESIUM SULF RIDER 2 GM in PREMIX 1 EACH IV PRN (05:55)
[2020-04-01] MEDS ORDERED: ACETAMINOPHEN 325 MG TABLET PO PRN (05:57)
[2020-04-01] MEDS ORDERED: PROMETHAZINE 25 MG/1 ML VIAL IM PRN (05:57)
[2020-04-01] MEDS: AMPICILLIN/SULBACTAM 3,000 MG in SODIUM CHLORIDE 0.9% 100 ML IV SCH ×3 (08:15→22:17)
[2020-04-01] MEDS: carvediloL 12.5 MG TABLET PO SCH ×2 (08:15→18:20)
[2020-04-01] MEDS: oxyCODONE/ACETAMINOPHEN 5-325 MG TABLET PO PRN ×2 (08:35→18:18)
[2020-04-01 08:55] LABS: Bilirubin,Urine Negative (Negative); Blood, Urine Negative (Negative); Glucose,Urine (UA) Negative (Negative); Hyaline Casts,Urine 1 /LPF (0-3); Ketones,Urine Negative (Negative); Mucus,Urine Occasional /LPF (Occasional); Nitrite,Urine Negative (Negative); Protein,Urine Negative; RBC,Urine 2 /HPF (0-4); Squamous Epithelial Cell,Urine Occasional /HPF (0-10); Urine Appearance CLEAR (Clear); Urine Color Yellow (Yellow); Urine Specific Gravity 1.013 (1.001-1.035); Urine Urobilinogen < 2.0 EU/DL (0.2-1.0); WBC,Urine 5 /HPF (0-6)
[2020-04-01] MEDS ORDERED: POTASSIUM CHLORIDE 20 MEQ TABLET PO SCH (09:00)
[2020-04-01] MEDS ORDERED: FUROSEMIDE 40 MG TABLET PO SCH (09:00)
[2020-04-01] MEDS: ENOXAPARIN 40 MG/0.4 ML SYRINGE SUBCUT SCH (09:00)
[2020-04-01] MEDS: MULTIVITAMIN (OCUVITE) TABLET PO SCH (09:15)
[2020-04-01] MEDS: AMIODARONE 200 MG TABLET PO SCH (09:15)
[2020-04-01] MEDS: ESCITALOPRAM 10 MG TABLET PO SCH (09:15)
[2020-04-01] MEDS: QUEtiapine 25 MG TABLET PO SCH ×2 (09:15→21:41)
[2020-04-01] MEDS: MULTIVITAMIN (CENTRUM) TABLET PO SCH (09:20)
[2020-04-01] MEDS: ASPIRIN EC 81 MG TABLET PO SCH (09:20)
[2020-04-01] MEDS: LUBIPROSTONE 8 MCG CAPSULE PO SCH ×2 (09:25→21:41)
[2020-04-01] MEDS: amLODIPine 10 MG TABLET PO SCH (09:30)
[2020-04-01] MEDS: PANTOPRAZOLE 40 MG TABLET PO SCH (09:30)
[2020-04-01] MEDS: SPIRONOLACTONE 25 MG TABLET PO SCH (09:30)
[2020-04-01] MEDS: SODIUM CHLORIDE 0.9% 1,000 ML IV SCH ×2 (16:46→18:58)
[2020-04-01] MEDS: rOPINIRole 0.25 MG TABLET PO SCH (21:41)
[2020-04-01] MEDS: ONDANSETRON 4 MG/2 ML VIAL IV PRN (22:10)
[2020-04-01] MEDS: MORPHINE 4 MG/1 ML VIAL IV PRN (22:13)
[2020-04-02] MEDS: MORPHINE 4 MG/1 ML VIAL IV PRN ×3 (03:18→14:14)
[2020-04-02] MEDS: AMPICILLIN/SULBACTAM 3,000 MG in SODIUM CHLORIDE 0.9% 100 ML IV SCH ×4 (03:26→20:50)
[2020-04-02] MEDS: ONDANSETRON 4 MG/2 ML VIAL IV PRN ×2 (03:29→22:26)
[2020-04-02] MEDS: MULTIVITAMIN (OCUVITE) TABLET PO SCH ×3 (03:58→20:51)
[2020-04-02] MEDS: SODIUM CHLORIDE 0.9% 1,000 ML IV SCH ×2 (05:15→18:35)
[2020-04-02 05:55] LABS: Basophils # 0.1 10*3/uL (0.0-0.2); Basophils % 0.4 % (0.0-0.8); Eosinophils # 0.2 10*3/uL (0.0-0.87); Eosinophils % 1.4 % (0.00-10.9); Hematocrit 30.4 VOL% (35.7-47.0); Hemoglobin 10.2 GM/DL (12.0-16.0); Immature Granulocytes % 0.5 %; Immature Granulocytes Absolute 0.06 #; Lymphocytes # 2.1 10*3/uL (1.4-4.0); Lymphocytes % 17.1 % (21.3-54.2); Mean Corpuscular HGB Conc 33.6 GM/DL (32-36); Mean Corpuscular Volume 94.7 FL (87-102); Neutrophils % 71.6 % (38.7-73.9); Platelet Count 179 T/CUMM (130-400); Red Blood Count 3.21 MC/CUMM (3.8-5.5); Red Cell Distribution Width 14.3 % (9.3-17.3); White Blood Count 12.2 T/CUMM (4-12)
[2020-04-02 06:29] LABS: Calcium 8.5 MG/DL (8.5-10.1)
[2020-04-02] MEDS: POTASSIUM CHLORIDE 20 MEQ TABLET PO PRN ×4 (07:24→16:56)
[2020-04-02] MEDS: ENOXAPARIN 40 MG/0.4 ML SYRINGE SUBCUT SCH (07:25)
[2020-04-02] MEDS: amLODIPine 10 MG TABLET PO SCH (09:30)
[2020-04-02] MEDS: ESCITALOPRAM 10 MG TABLET PO SCH (09:30)
[2020-04-02] MEDS: SPIRONOLACTONE 25 MG TABLET PO SCH (09:31)
[2020-04-02] MEDS: MULTIVITAMIN (CENTRUM) TABLET PO SCH (09:31)
[2020-04-02] MEDS: LUBIPROSTONE 8 MCG CAPSULE PO SCH ×2 (09:31→20:54)
[2020-04-02] MEDS: carvediloL 12.5 MG TABLET PO SCH ×2 (09:31→16:55)
[2020-04-02] MEDS: PANTOPRAZOLE 40 MG TABLET PO SCH (09:31)
[2020-04-02] MEDS: AMIODARONE 200 MG TABLET PO SCH (09:31)
[2020-04-02] MEDS: ASPIRIN EC 81 MG TABLET PO SCH (09:31)
[2020-04-02] MEDS: oxyCODONE/ACETAMINOPHEN 5-325 MG TABLET PO PRN ×2 (09:31→20:50)
[2020-04-02] MEDS: QUEtiapine 25 MG TABLET PO SCH ×2 (10:33→20:51)
[2020-04-02] MEDS: rOPINIRole 0.25 MG TABLET PO SCH (20:51)
[2020-04-03] MEDS: POTASSIUM CHLORIDE 20 MEQ TABLET PO PRN ×2 (00:32→03:59)
[2020-04-03] MEDS: SODIUM CHLORIDE 0.9% 1,000 ML IV SCH ×2 (03:57→09:36)
[2020-04-03] MEDS: AMPICILLIN/SULBACTAM 3,000 MG in SODIUM CHLORIDE 0.9% 100 ML IV SCH ×2 (03:58→09:36)
[2020-04-03 06:12] LABS: Calcium 8.3 MG/DL (8.5-10.1); Osmolality,Calculated 282.8 MOS/KG (273-304)
[2020-04-03 06:13] LABS: Basophils # 0.1 10*3/uL (0.0-0.2); Basophils % 0.6 % (0.0-0.8); Eosinophils # 0.4 10*3/uL (0.0-0.87); Eosinophils % 4.3 % (0.00-10.9); Hemoglobin 10.3 GM/DL (12.0-16.0); Immature Granulocytes % 0.3 %; Immature Granulocytes Absolute 0.03 #; Lymphocytes % 19.8 % (21.3-54.2); Mean Corpuscular HGB Conc 33.2 GM/DL (32-36); Mean Platelet Volume 10.2 FL (9.6-12.0); Monocytes % 8.6 % (1.7-12.7); Neutrophils % 66.4 % (38.7-73.9); Platelet Count 185 T/CUMM (130-400); Red Blood Count 3.23 MC/CUMM (3.8-5.5); Red Cell Distribution Width 14.6 % (9.3-17.3); White Blood Count 10.2 T/CUMM (4-12)
[2020-04-03] MEDS: ENOXAPARIN 40 MG/0.4 ML SYRINGE SUBCUT SCH (06:23)
[2020-04-03] MEDS: oxyCODONE/ACETAMINOPHEN 5-325 MG TABLET PO PRN (06:40)
[2020-04-03] MEDS: ONDANSETRON 4 MG/2 ML VIAL IV PRN (06:40)
[2020-04-03 07:48] VITALS: BP 117/44
[2020-04-03] MEDS ORDERED: POLYETHYLENE GLYCOL POWDER 17 GM PACK PO SCH (09:00)
[2020-04-03] MEDS: carvediloL 12.5 MG TABLET PO SCH (09:10)
[2020-04-03] MEDS: AMIODARONE 200 MG TABLET PO SCH (09:10)
[2020-04-03] MEDS: SPIRONOLACTONE 25 MG TABLET PO SCH (09:10)
[2020-04-03] MEDS: LUBIPROSTONE 8 MCG CAPSULE PO SCH (09:10)
[2020-04-03] MEDS: ESCITALOPRAM 10 MG TABLET PO SCH (09:10)
[2020-04-03] MEDS: MULTIVITAMIN (CENTRUM) TABLET PO SCH (09:10)
[2020-04-03] MEDS: QUEtiapine 25 MG TABLET PO SCH (09:10)
[2020-04-03] MEDS: ASPIRIN EC 81 MG TABLET PO SCH (09:10)
[2020-04-03] MEDS: MULTIVITAMIN (OCUVITE) TABLET PO SCH (09:10)
[2020-04-03] MEDS: amLODIPine 10 MG TABLET PO SCH (09:10)
[2020-04-03] MEDS: PANTOPRAZOLE 40 MG TABLET PO SCH (09:10)
== END 2020-04-03 10:43 | disposition home health service (06) ==
LOC: EDUNIT# → EDBD → N.ED 02:59 → N.EDINP 02:59 → N.3E 16:46
PROVIDERS: ADMIT Internal Medicine; ATTEND Internal Medicine